=== PATIENT | male | born 1970 | race Caucasian/White ===

== ENCOUNTER → 2020-01-29 | Emergency (ER) | payer BC ==
[~2020-01-29] VITALS: Ht 185.4 cm; Wt 120.2 kg
[~2020-01-29] MED LIST: KEPRA; LISIPOW; METOPROLOL; OMEPRAZOLE
[2020-01-29 17:36] VITALS: BP 129/84
== END | disposition home or self-care (01) ==
LOC: ER 17:16
DX: R06.02 Shortness of breath (principal)
CPT/HCPCS: 71045